=== PATIENT | female | born 1940 | race Caucasian/White ===

== ENCOUNTER 2017-03-04 21:03 | Emergency (ER) | payer OTHER ==
[~2017-03-04] VITALS: Ht 162.6 cm; Wt 83.9 kg
[~2017-03-04 21:03] MED LIST: ASCO500T2 PO; ASPI-482 PO; DIPH25CA58 PO; DONE10TA7 PO; Doxycycline Hyclate PO; FAMO20TA5 PO; FURO-68 PO; GUAI600T38 PO; HYDR-2666 PO; MEMA10TA PO; METO50TA2 PO; MINO50CA PO; PHEN100C PO; PHEN32.42 PO; POTA20TA4 PO; SENN-37 PO; TACR100O2 TP; THIA100T8 PO; VENL37.57 PO; VENL75CA6 PO
--- NOTE | 2017-03-04 23:02 | RAD ---
PROCEDURE CT head without contrast. HISTORY Head injury. TECHNIQUE CT of the head was performed without intravenous contrast. One or more of the following individualized dose reduction techniques were utilized for this examination: 1. Automated exposure control; 2. Adjustment of the mA and/or kV according to patient size; 3. Use of iterative reconstruction technique. FINDINGS There is no intracranial hemorrhage. There is a chronic lacunar infarct in the left basal ganglia extending into the fernandez radiata. There is [id number] chronic small vessel ischemic white matter change elsewhere. Prominence of the lateral ventricles and hemispheric sulci indicates mild atrophy for patient age. Additional small chronic lacunar infarcts are noted in the right caudate. There are changes of bilateral cataract surgery. The temporal bones, paranasal sinuses and calvarium are unremarkable in their included portions. IMPRESSION - No acute intracranial findings. - Mild atrophy and chronic small vessel ischemic change as above. Electronically signed by: Enrrique Freeman (March 04, 2017 23:01:44)
[2017-03-04 23:18] LABS: BILIRUBIN,URINE NEGATIVE (NEG); GLUCOSE,URINE NEGATIVE (NEG); NITRITE,URINE NEGATIVE (NEG); PH,URINE 5.5; PROTEIN,URINE NEGATIVE (NEG-TRACE); UROBILINOGEN,URINE 0.2 mg/dL (0.2 mg/dL)
[2017-03-04 23:20] LABS: BACTERIA,URINE 0 /HPF (0-FEW); WBC,URINE 0 /HPF (0-4)
--- NOTE | 2017-03-04 23:29 | PHYS DOC ---
Past Medical History Past Medical History: CVA, Dementia Past Surgical History: No Surgical History Alcohol Use: None Drug Use: None Adult General Chief Complaint Chief Complaint: MECHANICAL FALL HPI HPI Patient is a 76 year old who presents today from the nursing facility secondary to a fall from her wheelchair. Patient denies any loss of consciousness. Patient reports she was in a wheelchair was bending over to reach something and fell forward. Patient reports she hit the right side of her forehead. Patient denies any pain or discomfort at this time. Patient has any nausea vomiting. Patient has any C-spine T-spine or L-spine discomfort. Patient denies any pain to her upper or lower extremities. Patient reports she has a history of GERD, to mature, and CVAs in the past. Per retirement records, retirement is also concerned about her acting somewhat differently than usual and they're requesting that we obtain a urinalysis on her as well. Patient reports that she feels at her baseline. Patient has any fevers shakes chills nausea vomiting diarrhea chest pain shortness breath cough cold or runny nose. Patient's physical exam was unremarkable. Patient has no C-spine T-spine or L- spine tenderness to palpation. Patient is resting comfortably in bed without any apparent discomfort. Patient had full range of motion performed on her upper and lower 70s. Patient did not grimace or appear appear to have any discomfort whatsoever. Patient has no abdominal pain or lower back pain. Patient had no other complaints at this time. A/P #1 minor head injury patient is clinically hemodynamically stable. A CT scan of her head was obtained which revealed no acute pathology. #2 dementia patient appears to be at baseline. Patient had a urinalysis obtained which did not reveal any urinary tract infection. Patient will be discharged back to her facility in stable condition with instructions to follow- up with her primary care physician for reevaluation within the next 24-48 hours. Review of Systems Review of Systems Constitutional: Denies fever or chills [] Eyes: Denies change in visual acuity, redness, or eye pain [] All other review systems are negative except as documented in the history of present illness portion. Allergies Allergies Allergies Coded Allergies Type Severity Reaction Last Updated Verified No Known Drug Allergies 08/12/15 No Physical Exam Physical Exam Constitutional: Well developed, well nourished, no acute distress, non-toxic appearance. [] HENT: Normocephalic, atraumatic, bilateral external ears normal, oropharynx moist, no oral exudates, nose normal. [] Eyes: PERRLA, EOMI, conjunctiva normal, no discharge. [] Neck: Normal range of motion, no tenderness, supple, no stridor. [] Cardiovascular:Heart rate regular rhythm, Lungs & Thorax: Bilateral breath sounds clear to auscultation [] Abdomen: Bowel sounds normal, soft, no tenderness, no masses, Skin: Warm, dry, Back: No tenderness, no CVA tenderness. [] Extremities: No tenderness, no cyanosis, no clubbing, ROM intact, no edema. [] Neurologic: Alert and awake, normal motor function, normal sensory function, no focal deficits noted. [] Psychologic: Affect normal, judgement normal, mood normal. [] Current Patient Data Vital Signs Vital Signs Date Time Temp Pulse Resp B/P (MAP) Pulse Ox O2 Delivery O2 Flow Rate FiO2 03/04/17 23:00 76 16 104/61 (75) 98 Room Air 03/04/17 21:59 98.4 98.4 Lab Values Laboratory Tests Test 03/04/17 22:15 Urine Collection Type U cath Urine Color Yellow Urine Clarity Clear Urine pH 5.5 Urine Specific [place] 1.015 Urine Protein Negative mg/dL (NEG-TRACE) Urine Glucose (UA) Negative mg/dL (NEG) Urine Ketones (Stick) Negative mg/dL (NEG) Urine Blood Small (NEG) Urine Nitrite Negative (NEG) Urine Bilirubin Negative (NEG) Urine Urobilinogen Dipstick 0.2 mg/dL (0.2 mg/dL) Urine Leukocyte Esterase Negative (NEG) Urine RBC 1-2 /HPF (0-2) Urine WBC 0 /HPF (0-4) Urine Transitional Epithelial Cells Occ /LPF Urine Bacteria 0 /HPF (0-FEW) Urine Hyaline Casts Occasional /HPF Urine Mucus Slight /LPF EKG EKG [] Radiology/Procedures Radiology/Procedures [] Course & Med Decision Making Course & Med Decision Making Pertinent Labs and Imaging studies reviewed. (See chart for details) [] Dragon Disclaimer Dragon Disclaimer This electronic medical record was generated, in whole or in part, using a voice recognition dictation system. Departure Departure Impression: Primary Impression: Head injury Additional Impression: Dementia Disposition: 01 HOME, SELF-CARE Condition: IMPROVED Referrals: PAULETTE ZAMARRIPA MD (PCP) Patient Instructions: Head Injury, Adult Problem Qualifiers Primary Impression: Head injury Encounter type: initial encounter Qualified Codes: S09.90XA - Unspecified injury of head, initial encounter Additional Impression: Dementia Dementia type: unspecified type Dementia behavioral disturbance: without behavioral disturbance Qualified Codes: F03.90 - Unspecified dementia without behavioral disturbance JORGE CAMPUZANO MD March 04, 2017 23:29
[2017-03-05 00:07] VITALS: BP 116/70
== END 2017-03-05 00:02 | disposition home or self-care (01) ==
LOC: ER 21:03
DX: S09.90XA Unspecified injury of head, initial encounter (principal); F03.90 Unspecified dementia, unspecified severity, without behavioral disturbance, psychotic disturbance, mood disturbance, and anxiety; K21.9 Gastro-esophageal reflux disease without esophagitis; Z86.73 Personal history of transient ischemic attack (TIA), and cerebral infarction without residual deficits; W05.0XXA Fall from non-moving wheelchair, initial encounter; Y93.89 Activity, other specified; Y92.89 Other specified places as the place of occurrence of the external cause; Y99.8 Other external cause status
CPT/HCPCS: 70450; 81001; 99285-25

== ENCOUNTER 2019-05-14 08:51 | Emergency (ER) | payer MEDICAID, MEDICARE, OTHER ==
[~2019-05-14] VITALS: Ht 157.5 cm; Wt 77.1 kg
[~2019-05-14 08:51] MED LIST changes: -GUAI600T38 PO; +GUAI600T47 PO; -HYDR-2666 PO; +HYDR-2761 PO; -METO50TA2 PO; +METO50TA6 PO; -MINO50CA PO; +MINO50CA3 PO
--- NOTE | 2019-05-14 09:12 | PHYS DOC ---
Past Medical History Past Medical History: CVA, Dementia Past Surgical History: No Surgical History Alcohol Use: None Drug Use: None Adult General Chief Complaint Chief Complaint: OTHER COMPLAINTS [facility] HPI Patient is a 78 year old female who presents with over from [facility] this morning. Patient was eating godinez and toast and got a food bolus stuck in her throat and staff states that her lips started turning blue when she went limp. Staff states that they hit her on the back and gave her the Heimlich maneuver and the patient ended up swallowing the food and clearing her airway. Patient is alert to self and she does she is at the hospital and can remember the incident that happened. Staff states that this is her normal mental status. Patient denies any pain. Patient has a history of right-sided deficits from a CVA and is wheelchair-bound. Patient has short-term memory loss. Review of Systems Review of Systems Constitutional: Denies fever or chills [] Eyes: Denies change in visual acuity, redness, or eye pain [] HENT: Denies nasal congestion or sore throat. Choked on food, lips turned purple. [] Respiratory: Denies cough or shortness of breath [] Cardiovascular: No additional information not addressed in HPI [] GI: Denies abdominal pain, nausea, vomiting, bloody stools or diarrhea [] : Denies dysuria or hematuria [] Musculoskeletal: Denies back pain or joint pain [] Integument: Denies rash or skin lesions [] Neurologic: Denies headache, focal weakness or sensory changes [] Endocrine: Denies polyuria or polydipsia [] All other systems were reviewed and found to be within normal limits, except as documented in this note. Allergies Allergies Allergies Coded Allergies Type Severity Reaction Last Updated Verified No Known Drug Allergies 08/12/15 No Physical Exam Physical Exam Constitutional: Well developed, well nourished, no acute distress, non-toxic appearance. [] HENT: Normocephalic, atraumatic, bilateral external ears normal, oropharynx moist, no oral exudates, nose normal. [] Eyes: PERRLA, EOMI, conjunctiva normal, no discharge. [] Neck: Normal range of motion, no tenderness, supple, no stridor. [] Cardiovascular:Heart rate regular rhythm, no murmur. Tachycardic [] Lungs & Thorax: Bilateral upper breath sounds clear to auscultation and lower lungs diminished.[] Abdomen: Bowel sounds normal, soft, no tenderness, no masses, no pulsatile masses. [] Skin: Warm, dry, no erythema, no rash. [] Back: No tenderness, no CVA tenderness. [] Extremities: No tenderness, no cyanosis, no clubbing, ROM intact, no edema. [] Neurologic: Alert and oriented X 3, normal motor function, normal sensory function, no focal deficits noted. [] Psychologic: Affect normal, judgement normal, mood normal. [] Current Patient Data Vital Signs Vital Signs Date Time Temp Pulse Resp B/P (MAP) Pulse Ox O2 Delivery O2 Flow Rate FiO2 05/14/19 08:53 97.8 101 16 148/67 (94) 98 Room Air 97.8 EKG EKG [] Radiology/Procedures Radiology/Procedures [] Impressions: [facility] [address] [place] [address] IMAGING REPORT Signed PATIENT: AIDA KIM ACCOUNT: [id number] : 1940 LOCATION: ER AGE: 78 SEX: F EXAM STATUS: REG ER ORD. PHYSICIAN: ZBIGNIEW VICTOR APRN REASON: choked on food PROCEDURE: PORTABLE CHEST 1V Chest radiograph 05/14/2019 9:06 AM INDICATION: Choked on food COMPARISON: August 12, 2015 TECHNIQUE: Portable upright frontal view of the chest is provided. FINDINGS: The cardiomediastinal silhouette is within normal limits. Patient is rotated limiting evaluation. There are no pleural effusions. There is no pulmonary vascular congestion. There is no pneumothorax. The lungs are clear. No significant osseous abnormality is identified. Small hiatal hernia. IMPRESSION: No acute cardiopulmonary process. Small hiatal hernia. Electronically signed by: Dago Hurst MD (05/14/2019 10:08 AM) [id number] DICTATED and SIGNED BY: DAGO HURST MD DATE: 05/14/19 1008 Course & Med Decision Making Course & Med Decision Making Patient is a 78 year old female who presents with over from [facility] this morning. Patient was eating godinez and toast and got a food bolus stuck in her throat and staff states that her lips started turning blue when she went limp. Staff states that they hit her on the back and gave her the Heimlich maneuver and the patient ended up swallowing the food and clearing her airway. Patient is alert to self and she does she is at the hospital and can remember the incident that happened. Staff states that this is her normal mental status. Patient denies any pain. Patient has a history of right-sided deficits from a CVA and is wheelchair-bound. Patient has short-term memory loss. Alert and oriented to self and place. Patient speaks in full clear sentences. Patient answers all questions appropriately. Vital signs are within normal limits. Patient denies shortness of air, chest pain, abdominal pain, back pain, nausea or vomiting. Lungs are clear in upper lobes sound diminished in lower lobes bilaterally. Heart rate tachycardia at 100 and vital signs are within normal limits. Afebrile. Abdomen is soft and nontender and there is no bruising. No bruising seen to her back or neck. Skin is pink warm and dry. Mucous membranes are moist. PERRLA. Chest xray shows No acute cardiopulmonary process. Small hiatal hernia. Patient is sent home to [facility]. Vital signs remain stable. Patient staus has unchanged and she continues to deny pain or shortness of breath. Patient follow- up primary care if needed. Dragon Disclaimer Dragon Disclaimer This electronic medical record was generated, in whole or in part, using a voice recognition dictation system. Departure Departure Impression: Primary Impression: Encounter for medical screening examination Disposition: HOME, SELF-CARE Condition: STABLE Referrals: PAULETTE ZAMARRIPA MD (PCP) Patient Instructions: Medical Screening Exam Additional Instructions: Follow up with primary care provider if needed. ZBIGNIEW VICTOR ANALYSIS LEAD May 14, 2019 09:12
--- NOTE | 2019-05-14 10:12 | RAD ---
Chest radiograph 05/14/2019 9:06 AM INDICATION: Choked on food COMPARISON: August 12, 2015 TECHNIQUE: Portable upright frontal view of the chest is provided. FINDINGS: The cardiomediastinal silhouette is within normal limits. Patient is rotated limiting evaluation. There are no pleural effusions. There is no pulmonary vascular congestion. There is no pneumothorax. The lungs are clear. No significant osseous abnormality is identified. Small hiatal hernia. IMPRESSION: No acute cardiopulmonary process. Small hiatal hernia. Electronically signed by: Nel Lyons MD (05/14/2019 10:08 AM) [id number]
[2019-05-14 11:05] VITALS: BP 165/99
== END 2019-05-14 11:40 | disposition home or self-care (01) ==
LOC: ER 08:51
DX: T17.228A Food in pharynx causing other injury, initial encounter (principal); R00.0 Tachycardia, unspecified; Z86.73 Personal history of transient ischemic attack (TIA), and cerebral infarction without residual deficits; X58.XXXA Exposure to other specified factors, initial encounter; Y93.89 Activity, other specified; Y92.89 Other specified places as the place of occurrence of the external cause; Y99.8 Other external cause status
CPT/HCPCS: 71045; 99284-25